=== PATIENT | male | born 1965 | race American Indian/Alaskan Native ===

== ENCOUNTER 2018-04-08 08:15 | Emergency (ER) | payer MEDICARE ==
[2018-04-08 08:18] VITALS: BMI 20.5
[2018-04-08 08:19] VITALS: RESP 17; TEMP 98.5
[2018-04-08] MEDS ORDERED: Sodium Chloride 0.9% 1,000 ML IV STA (09:36)
[2018-04-08 10:29] LABS: BASO % 0.2 % (0.0-2.0); EOS % 0.1 % (0.0-4.0); HEMOGLOBIN 12.9 g/dL (12.0-18.0); LYMPH # 0.7 K/uL (1.0-4.3); LYMPH % 10.1 % (20.0-40.0); MEAN CELL VOLUME 84.1 fl (80.0-94.0); MEAN CORPUSCULAR HEMOGLOBIN 28.3 pg (27.0-31.0); MEAN CORPUSCULAR HGB CONC 33.6 g/dL (33.0-37.0); MONO # 0.7 K/uL (0.0-0.8); NEUT # 5.7 K/uL (1.8-7.0); NEUT % 79.6 % (50.0-75.0); NRBC % 0.1 % (0.0-0.0); RBC 4.56 Mil/uL (4.40-5.90); RED CELL DISTRIBUTION WIDTH 13.5 % (11.5-14.5); WHITE BLOOD COUNT 7.2 K/uL (4.8-10.8)
[2018-04-08 10:35] LABS: INR 1.2; PROTHROMBIN TIME 13.4 Seconds (9.8-13.1)
[2018-04-08 10:38] LABS: PARTIAL THROMBOPLASTIN TIME 32.6 Seconds (25.6-37.1)
[2018-04-08 10:47] LABS: ALB/GLOB RATIO 1.1 (1.0-2.1); ALBUMIN 3.9 g/dL (3.5-5.0); ALT/SGPT 22 U/L (21-72); AST/SGOT 22 U/L (17-59); BLOOD UREA NITROGEN 16 mg/dl (9-20); CALCIUM 9.1 mg/dL (8.4-10.2); GFR NON-AFRICAN AMERICAN > 60
--- NOTE | 2018-04-08 10:56 | CT ---
Date of service: 04/08/2018 PROCEDURE: CT HEAD WITHOUT CONTRAST. HISTORY: headache COMPARISON: CT head dated 06/06/2014 TECHNIQUE: Axial computed tomography images were obtained through the head/brain without intravenous contrast. Radiation dose: Total exam DLP = 728.7 mGy-cm. This CT exam was performed using one or more of the following dose reduction techniques: Automated exposure control, adjustment of the mA and/or kV according to patient size, and/or use of iterative reconstruction technique. FINDINGS: HEMORRHAGE: No intracranial hemorrhage. BRAIN: No mass effect or edema. No atrophy or chronic microvascular ischemic changes. VENTRICLES: Unremarkable. No hydrocephalus. CALVARIUM: Unremarkable. PARANASAL SINUSES: Unremarkable as visualized. No significant inflammatory changes. MASTOID AIR CELLS: Unremarkable as visualized. No inflammatory changes. OTHER FINDINGS: None. IMPRESSION: No acute intracranial pathology.
--- NOTE | 2018-04-08 11:07 | ED PDOC ---
HPI: Headache Time Seen by Provider: 04/08/18 09:09 Chief Complaint (Nursing): Headache Chief Complaint (Provider): Headache History Per: Patient History/Exam Limitations: no limitations Onset/Duration Of Symptoms: Days (x1) Current Symptoms Are (Timing): Still Present Additional Complaint(s): 52 year old male, with a past medical history of migraines, presenting for evaluation of generalized headache x1 day. Patient states this morning he woke up with headache. Patient states headache is consistent with his usual migraines, was slow in onset, and not worst in his life. Patient is also complaining of chills, stiff neck, photophobia, and some hand pain which he s tates is also typical of his migraines. Patient reports he usually takes Fioricet for his migraines, but has none at home. Patient states he took Tylenol for his pain with no relief. Patient otherwise denies any fevers, numbness, tingling, chest pain, shortness of breath, nausea, vomiting, abdominal pain, dizziness, syncope, urinary complaints, or bladder or bowel incontinence. Patient also states he has an oral "abscess" which he noticed yesterday. Patient reports he is otherwise able to swallow and denies any throat pain. PMD: None Past Medical History Reviewed: Historical Data, Nursing Documentation, Vital Signs Vital Signs: Last Vital Signs Temp 98.5 F 04/08/18 08:18 Pulse 76 04/08/18 08:18 Resp 17 04/08/18 08:18 BP 121/88 04/08/18 08:18 Pulse Ox 100 04/08/18 08:18 - Medical History PMH: HTN, Migraine - Family History Family History: States: Unknown Family Hx - Immunization History Hx Tetanus Toxoid Vaccination: No Hx Influenza Vaccination: No Hx Pneumococcal Vaccination: Yes - Home Medications Home Medications: Ambulatory Orders Medication Instructions Recorded Aspirin [Ecotrin] 81 mg PO DAILY #30 tabec 02/27/18 Cyanocobalamin (Vitamin B-12) 1,000 mcg PO DAILY #60 capsule 02/27/18 [Vitamin B-12] Metoprolol Tartrate [Lopressor] 25 mg PO BID #60 tab 02/27/18 Acetaminophen/Butalbital/Caf 1 tab PO PRN PRN 03/16/18 [Fioricet] Acetaminophen/Butalbital/Caf 1 tab PO TID PRN #20 tab 03/16/18 [Fioricet] Clindamycin [Cleocin] 300 mg PO QID 7 Days cap 04/08/18 Ibuprofen [Motrin] 600 mg PO TID 7 Days tab 04/08/18 - Allergies Allergies/Adverse Reactions: Allergies Allergy/AdvReac Type Severity Reaction Status Date / Time No Known Allergies Allergy Verified 04/08/18 08:34 Review of Systems ROS Statement: Except As Marked, All Systems Reviewed And Found Negative Constitutional: Negative for: Fever, Chills Eyes: Positive for: Other (photophobia) Cardiovascular: Negative for: Chest Pain, Light Headedness Respiratory: Negative for: Shortness of Breath Gastrointestinal: Negative for: Nausea, Vomiting, Abdominal Pain, Diarrhea Neurological: Positive for: Headache Physical Exam - Reviewed Nursing Documentation Reviewed: Yes Vital Signs Reviewed: Yes - Physical Exam Appears: Positive for: Well, Non-toxic, No Acute Distress Head Exam: Positive for: ATRAUMATIC, NORMAL INSPECTION, NORMOCEPHALIC Skin: Positive for: Normal Color, Warm, Dry. Negative for: Rash Eye Exam: Positive for: EOMI, Normal appearance, PERRL ENT: Positive for: Other (left lower molar 2nd with tenderness to touch, patient with poor hygiene diffusely, questionable dental carries noted, (-) gross abscess or erythema noted) Neck: Positive for: Normal, Painless ROM, Supple Cardiovascular/Chest: Positive for: Regular Rate, Rhythm. Negative for: Murmur Respiratory: Positive for: Normal Breath Sounds. Negative for: Respiratory Distress Gastrointestinal/Abdominal: Positive for: Normal Exam, Soft. Negative for: Tenderness Back: Positive for: Normal Inspection. Negative for: L CVA Tenderness, R CVA Tenderness, Vertebral Tenderness Extremity: Positive for: Normal ROM. Negative for: Tenderness, Deformity Neurologic/Psych: Positive for: Alert, manager strategy II-XII, Oriented. Negative for: Motor/Sensory Deficits, Aphasia, Facial Droop - Laboratory Results Result Diagrams: 04/08/18 10:18 04/08/18 10:18 Interpretation Of Abn Labs: no acute - ECG ECG: Positive for: Interpreted By Me, Viewed By Me ECG Rhythm: Positive for: Normal QRS, Normal ST Segment, Sinus Rhythm Interpretation Of Abn EKG: PACs O2 Sat by Pulse Oximetry: 100 (RA) Pulse Ox Interpretation: Normal Medical Decision Making Medical Decision Makin Plan: -CT Head w/o contrast -CMP -CBC -PTT/PT -NS 1L IVB -Reglan 10mg IV -Reevaluation 1120: Labs and imaging reviewed. Head CT shows no acute pathology. Labs show no acute abnormalities. Scribe Attestation: Documented by Maikel Lobato, acting as a scribe for Joe Grant MD. Provider Scribe Attestation: All medical record entries made by the Scribe were at my direction and personally dictated by me. I have reviewed the chart and agree that the record accurately reflects my personal performance of the history, physical exam, me dical decision making, and the department course for this patient. I have also personally directed, reviewed, and agree with the discharge instructions and disposition. 1245: Stable. AAOx3. Pain free. Tolerated PO. Fu with pcp. Freddy pedersen and jyoti sign. Ran out of Ctrax and that worked for his migraine. Disposition - Clinical Impression Clinical Impression: Headache, Dental caries - Patient ED Disposition Is Patient to be Admitted: No Counseled Patient/Family Regarding: Studies Performed, Diagnosis, Need For Followup, Rx Given - Disposition Referrals: [facility] [Outside] - 04/09/18 Disposition: Routine/Home Disposition Time: 12:56 Condition: STABLE Additional Instructions: Return if not better in 3 days. Prescriptions: Clindamycin [Cleocin] 300 mg PO QID 7 Days cap Ibuprofen [Motrin] 600 mg PO TID 7 Days tab Instructions: Dental Pain (DC), Headache, Adult (DC)
[2018-04-08] MEDS ORDERED: Apap-Butalbital-Caffeine 325-50-40mg Tab PO STA (11:30)
[2018-04-08] MEDS ORDERED: Apap-Butalbital-Caffeine 325-50-40mg Tab ONE (12:15)
[2018-04-08 13:30] VITALS: BP 119/66; PULSE 69; O2SAT 99
== END 2018-04-08 13:33 | disposition home or self-care (01) ==
LOC: H.ER 08:15
DX: R51 Headache (principal); K02.9 Dental caries, unspecified
CPT/HCPCS: 70450; 80053; 85025; 85610; 85730; 96361; 96374; 96375; 99285; J1885; J2765; J7030

== ENCOUNTER 2018-04-08 22:07 | Emergency (ER) | payer MEDICARE ==
[2018-04-08 22:08] VITALS: BMI 20.5
[2018-04-08 22:12] VITALS: BP 148/90; PULSE 66; RESP 16; TEMP 98.3; O2SAT 95
[2018-04-08] MEDS ORDERED: Oxycodone/Acetaminophen 5/325 mg Tab PO STA (22:32)
--- NOTE | 2018-04-08 22:37 | ED PDOC ---
HPI: Dental Pain/Injury Time Seen by Provider: 04/08/18 22:19 Chief Complaint (Nursing): Dental Pain History Per: Patient Additional Complaint(s): Pt. states yesterday he developed a painful swelling to the L lower jaw and radiates to his head. States that he was seen earlier today for the same and had blood work done. States he was prescribed Clindamycin and Motrin. States he went directly home after being dc'd from the ED as he wanted to rest. He woke up and pain became worse. Denies trauma, fever, head injury, sore throat. Of note, pt. states he did not take any medications [employer]. Past Medical History Reviewed: Historical Data, Nursing Documentation, Vital Signs Vital Signs: Last Vital Signs Temp 98.3 F 04/08/18 22:10 Pulse 66 04/08/18 22:10 Resp 16 04/08/18 22:10 BP 148/90 04/08/18 22:10 Pulse Ox 95 04/08/18 22:10 - Medical History PMH: HTN, Migraine - Family History Family History: States: No Known Family Hx - Immunization History Hx Tetanus Toxoid Vaccination: No Hx Influenza Vaccination: No Hx Pneumococcal Vaccination: Yes - Home Medications Home Medications: Ambulatory Orders Medication Instructions Recorded Aspirin [Ecotrin] 81 mg PO DAILY #30 tabec 02/27/18 Cyanocobalamin (Vitamin B-12) 1,000 mcg PO DAILY #60 capsule 02/27/18 [Vitamin B-12] Metoprolol Tartrate [Lopressor] 25 mg PO BID #60 tab 02/27/18 Acetaminophen/Butalbital/Caf 1 tab PO PRN PRN 03/16/18 [Fioricet] Acetaminophen/Butalbital/Caf 1 tab PO TID PRN #20 tab 03/16/18 [Fioricet] Clindamycin [Cleocin] 300 mg PO QID 7 Days cap 04/08/18 Ibuprofen [Motrin] 600 mg PO TID 7 Days tab 04/08/18 - Allergies Allergies/Adverse Reactions: Allergies Allergy/AdvReac Type Severity Reaction Status Date / Time No Known Allergies Allergy Verified 04/08/18 08:34 Review of Systems ROS Statement: Except As Marked, All Systems Reviewed And Found Negative Neurological: Positive for: Headache Physical Exam - Physical Exam Appears: Positive for: Well, Non-toxic, In Acute Distress (moderate painful distress) Skin: Positive for: Normal Color, Warm. Negative for: Rash Eye Exam: Positive for: Normal appearance ENT: Positive for: Other (L mandibular premolar area with mild gingival swelling; able to swallow saliva, no trismus). Negative for: Pharyngeal Erythema, Tonsillar Exudate, Tonsillar Swelling Neck: Positive for: Normal, Painless ROM Neurologic/Psych: Positive for: Alert, Oriented (x3), Other. Negative for: Aphasia, Facial Droop - ECG O2 Sat by Pulse Oximetry: 95 - Progress ED Course And Treament: Toradol 30mg IM, percocet 1 tab PO, clindamycin 300mg PO ordered. Pt. informed that he must f/u with a dental clinic for I&D of abscess. Disposition - Clinical Impression Clinical Impression: Dental abscess - Patient ED Disposition Is Patient to be Admitted: No - Disposition Referrals: [facility] [Outside] [facility] [Outside] Disposition: Routine/Home Disposition Time: 22:42 Condition: IMPROVED Additional Instructions: Dental Clinic [address] [place] [id number] FOLLOW UP WITH A DENTIST FOR FURTHER EVALUATION FILL YOUR PRESCRIPTIONS TOMORROW BILL NEW, thank you for letting us take care of you today. Your provider was Jeet Coronel MD and you were treated for WEAKNESS, POSS ABSCESS. The emergency medical care you received today was directed at your acute symptoms. If you were prescribed any medication, please fill it and take as directed. It may take several days for your symptoms to resolve. Return to the Emergency Department if your symptoms worsen, do not improve, or if you have any other problems. Please contact your doctor or call one of the physicians/clinics you have been referred to that are listed on the Patient Visit Information form that is included in your discharge packet. Bring any paperwork you were given at discharge with you along with any medications you are taking to your follow up visit. Our treatment cannot replace ongoing medical care by a primary care provider outside of the emergency department. Thank you for allowing the [facility] team to be part of your care today. If you had an X-Ray or CT scan: A Radiologist will review the ED reading if any change in treatment is needed we will contact you. If you had a blood, urine, or wound culture: It will take several days for the results, if any change in treatment is needed we will contact you. If you had an STI test: It will take 48 hours for the results. Please call after 1 week if you have not heard back. Instructions: Tooth Abscess (DC) Print Language: AUSTRALIAN
== END 2018-04-08 23:27 | disposition home or self-care (01) ==
LOC: H.ER 22:07
DX: K04.7 Periapical abscess without sinus (principal)
CPT/HCPCS: 96372; 99282; J1885

== ENCOUNTER 2018-04-08 23:30 | Emergency (ER) | payer MEDICARE ==
[2018-04-08 23:30] VITALS: BMI 20.5
[2018-04-09] MEDS ORDERED: Sodium Chloride 0.9% 1,000 ML IV STA (00:38)
--- NOTE | 2018-04-09 00:41 | CARD ---
APPROVED REPORT Date of service: 04/08/2018 EKG Measurement Heart [id number] <Conclusion> Sinus rhythm with premature atrial complexes Borderline ECG
--- NOTE | 2018-04-09 01:11 | ED PDOC ---
HPI: General Adult Time Seen by Provider: 04/09/18 00:15 Chief Complaint (Nursing): Weakness/Neurological Deficit Chief Complaint (Provider): Dizzy History Per: Patient History/Exam Limitations: no limitations Recently: Seen In ED Additional History Per: Patient Additional Complaint(s): 52yo male, with past medical history of hypertension, migraines, presents to ER complaining of feeling dizzy. Patient was evaluated in this ED 2x today and upon discharge, patient was in the waiting room where he reported feeling dizzy, lightheaded and felt as if "passing out." He also reports associated nausea. Patient denies any chest pain, headache, and offers no additional medical complaints. Past Medical History Reviewed: Historical Data, Nursing Documentation, Vital Signs Vital Signs: Last Vital Signs Temp 98.0 F 04/08/18 23:53 Pulse 70 04/08/18 23:53 Resp 16 04/08/18 23:53 BP 138/60 04/08/18 23:53 Pulse Ox 95 04/08/18 23:53 - Medical History PMH: HTN, Migraine - Surgical History Surgical History: No Surg Hx - Family History Family History: States: No Known Family Hx - Immunization History Hx Tetanus Toxoid Vaccination: No Hx Influenza Vaccination: No Hx Pneumococcal Vaccination: Yes - Home Medications Home Medications: Ambulatory Orders Medication Instructions Recorded Aspirin [Ecotrin] 81 mg PO DAILY #30 tabec 02/27/18 Cyanocobalamin (Vitamin B-12) 1,000 mcg PO DAILY #60 capsule 02/27/18 [Vitamin B-12] Metoprolol Tartrate [Lopressor] 25 mg PO BID #60 tab 02/27/18 Acetaminophen/Butalbital/Caf 1 tab PO PRN PRN 03/16/18 [Fioricet] Acetaminophen/Butalbital/Caf 1 tab PO TID PRN #20 tab 03/16/18 [Fioricet] Clindamycin [Cleocin] 300 mg PO QID 7 Days cap 04/08/18 Ibuprofen [Motrin] 600 mg PO TID 7 Days tab 04/08/18 - Allergies Allergies/Adverse Reactions: Allergies Allergy/AdvReac Type Severity Reaction Status Date / Time No Known Allergies Allergy Verified 04/08/18 08:34 Review of Systems ROS Statement: Except As Marked, All Systems Reviewed And Found Negative Cardiovascular: Positive for: Light Headedness. Negative for: Chest Pain Neurological: Positive for: Dizziness. Negative for: Headache Physical Exam - Reviewed Nursing Documentation Reviewed: Yes Vital Signs Reviewed: Yes - Physical Exam Appears: Positive for: Non-toxic (cacechtic and chronically ill appearing), Unc omfortable Head Exam: Positive for: ATRAUMATIC, NORMAL INSPECTION, NORMOCEPHALIC Skin: Positive for: Normal Color Eye Exam: Positive for: Normal appearance Neck: Positive for: Normal, Supple Cardiovascular/Chest: Positive for: Regular Rate, Rhythm, Chest Non Tender Respiratory: Positive for: Normal Breath Sounds Gastrointestinal/Abdominal: Positive for: Normal Exam, Soft Back: Positive for: Normal Inspection Extremity: Positive for: Normal ROM (moving all extremities) Neurologic/Psych: Positive for: Alert, Oriented, Other (slow to respond). Ne gative for: Motor/Sensory Deficits - Laboratory Results Result Diagrams: 04/09/18 01:21 04/09/18 01:21 - ECG O2 Sat by Pulse Oximetry: 95 (RA) Pulse Ox Interpretation: Normal Medical Decision Making Medical Decision Making: Assessment: 52yo male with history of hypertension, migraines, comes with weakness and dizziness Unclear if symptoms are chronic or acute on chronic Possibly related to dehydration, vertigo or central neurological etiology Plan: * Labs * EKG * CT Head w/o contrast * Chest x-ray * Urinalysis * Rapid HIV * IV Fluids * Reglan 10mg IVP 01:40 CT Head report reviewed. CT Head Impression: Normal unenhanced CT scan of the brain. 03:12 HIV screen negative 05:00 Labs reviewed, show no clinically significant abnormalities. On reassessment, patient reports feeling much better and states symptoms have improved. Patient informed to follow up with PMD/[place] clinic. Stable for discharge home. Scribe Attestation: Documented by Ann Fraser, acting as a scribe for Davian Carrillo MD. Provider Scribe Attestation: All medical record entries made by the Scribe were at my direction and p ersonally dictated by me. I have reviewed the chart and agree that the record accurately reflects my personal performance of the history, physical exam, medical decision making, and the department course for this patient. I have also personally directed, reviewed, and agree with the discharge instructions and disposition. Disposition - Clinical Impression Clinical Impression: Dizziness - Patient ED Disposition Is Patient to be Admitted: No - Disposition Referrals: [facility] [Outside] Disposition: Routine/Home Disposition Time: 05:06 Condition: IMPROVED Instructions: Generalized Weakness, Dizziness, Nonvertigo, (DC), Dehydration, Adult (DC) Forms: Gigya Jeevan (Slovenian)
[2018-04-09 01:24] LABS: BASO % 0.1 % (0.0-2.0); EOS % 0.2 % (0.0-4.0); HEMOGLOBIN 11.6 g/dL (12.0-18.0); LYMPH # 0.5 K/uL (1.0-4.3); LYMPH % 5.6 % (20.0-40.0); MEAN CELL VOLUME 85.9 fl (80.0-94.0); MEAN CORPUSCULAR HEMOGLOBIN 28.4 pg (27.0-31.0); MEAN PLATELET VOLUME 7.8 fl (7.2-11.7); MONO # 0.7 K/uL (0.0-0.8); MONO % 7.6 % (0.0-10.0); NEUT % 86.5 % (50.0-75.0); PLATELET COUNT 143 K/uL (130-400); RED CELL DISTRIBUTION WIDTH 13.8 % (11.5-14.5); WHITE BLOOD COUNT 9.2 K/uL (4.8-10.8)
[2018-04-09 01:26] LABS: INR 1.2; PROTHROMBIN TIME 13.7 Seconds (9.8-13.1)
[2018-04-09 01:29] LABS: PARTIAL THROMBOPLASTIN TIME 30.1 Seconds (25.6-37.1)
[2018-04-09 01:33] LABS: BLOOD UREA NITROGEN 15 mg/dl (9-20); CALCIUM 8.7 mg/dL (8.4-10.2); GFR NON-AFRICAN AMERICAN > 60
[2018-04-09 03:45] LABS: BANDS 2 % (0-2); LYMPHOCYTE 3 % (20-50); MONOCYTE 5 % (0-10); NEUTROPHIL 90 % (42-75); TOTAL CELLS COUNTED 100
[2018-04-09 03:46] LABS: PLATELET ESTIMATE NORMAL (NORMAL)
[2018-04-09 03:48] LABS: ANISOCYTOSIS SLIGHT
[2018-04-09 03:49] LABS: GIANT PLATELETS PRESENT; HYPOCHROMIC SLIGHT
[2018-04-09 04:41] LABS: URINE BILIRUBIN NEGATIVE (NEGATIVE); URINE BLOOD NEGATIVE (NEGATIVE); URINE CLARITY CLEAR (Clear); URINE COLOR YELLOW (YELLOW); URINE GLUCOSE (UA) NEG (Normal); URINE LEUKOCYTE ESTERASE NEG Leu/uL (Negative); URINE PROTEIN NEGATIVE (NEGATIVE); URINE UROBILINOGEN 0.2-1.0 mg/dL (0.2-1.0)
[2018-04-09 04:53] LABS: OPIATES, UR NEGATIVE (NEGATIVE)
[2018-04-09 04:55] LABS: BARBITURATES, UR POSITIVE (NEGATIVE); BENZODIAZEPINES, UR NEGATIVE (NEGATIVE); PHENCYCLIDINE, UR NEGATIVE (NEGATIVE)
[2018-04-09 05:53] VITALS: BP 149/96; PULSE 68; RESP 20; TEMP 98.8; O2SAT 99
--- NOTE | 2018-04-09 09:17 | CT ---
Date of service: 04/09/2018 PROCEDURE: CT HEAD WITHOUT CONTRAST. HISTORY: dizziness, weakness, ROMANO COMPARISON: 04/08/2018 TECHNIQUE: Axial computed tomography images were obtained through the head/brain without intravenous contrast. Radiation dose: Total exam DLP = 771.84 mGy-cm. This CT exam was performed using one or more of the following dose reduction techniques: Automated exposure control, adjustment of the mA and/or kV according to patient size, and/or use of iterative reconstruction technique. FINDINGS: HEMORRHAGE: No intracranial hemorrhage. BRAIN: No mass effect or edema. No atrophy or chronic microvascular ischemic changes. VENTRICLES: Unremarkable. No hydrocephalus. CALVARIUM: Unremarkable. PARANASAL SINUSES: Unremarkable as visualized. No significant inflammatory changes. MASTOID AIR CELLS: Unremarkable as visualized. No inflammatory changes. OTHER FINDINGS: None. IMPRESSION: Normal CT of the Head. No intracranial mass, hemorrhage or evidence of acute infarct. No interval change. The preliminary findings for this examination were reported by [facility] at 1:35 a.m. on 04/09/2018. There is concurrence of this report with the preliminary findings.
--- NOTE | 2018-04-09 12:42 | RAD ---
Date of service: 04/09/2018 PROCEDURE: CHEST RADIOGRAPH, 1 VIEW HISTORY: dizzines COMPARISON: Chest radiograph dated 10/11/2015. FINDINGS: LUNGS: Clear. PLEURA: No pneumothorax or pleural fluid seen. CARDIOVASCULAR: Normal. OSSEOUS STRUCTURES: Unchanged. VISUALIZED UPPER ABDOMEN: Normal. OTHER FINDINGS: None. IMPRESSION: No active disease.
== END 2018-04-09 06:19 | disposition home or self-care (01) ==
LOC: H.ER 23:30
DX: R42 Dizziness and giddiness (principal); F13.20 Sedative, hypnotic or anxiolytic dependence, uncomplicated; I10 Essential (primary) hypertension
CPT/HCPCS: 70450; 71045; 80048; 81003; 84484; 85025; 85610; 85730; 87390; 93005; 96360; 99285; G0480; J7030

== ENCOUNTER 2018-06-13 21:28 | Emergency (ER) | payer MEDICARE ==
[2018-06-13 21:29] VITALS: BMI 20.5
[2018-06-13 21:34] VITALS: TEMP 97.5; O2SAT 99
--- NOTE | 2018-06-14 02:27 | ED PDOC ---
HPI: General Adult Time Seen by Provider: 06/13/18 21:40 Chief Complaint (Nursing): Medical Clearance Chief Complaint (Provider): tremor, chest congestion History Per: Patient History/Exam Limitations: no limitations Onset/Duration Of Symptoms: Days Have you had recent travel within the past 21 days to any of the following countries: [place], [place], [place] or [place]?: No Current Symptoms Are (Timing): Still Present Additional Complaint(s): 52 yo male with history of schizophrenia and HTN presents for evaluation of tremor which he states has been going on for 1 month. Pt was placed on cogentin and haldol 2 months ago. Pt states he is unable to sleep. Pt also states he has chest congestion without pain and thinks he is getting a cold. No SOB. Past Medical History Reviewed: Historical Data, Nursing Documentation, Vital Signs Vital Signs: Last Vital Signs Temp 97.5 F L 06/13/18 21:32 Pulse 75 06/13/18 21:32 Resp 16 06/13/18 21:32 BP 144/75 06/13/18 21:32 Pulse Ox 99 06/13/18 21:32 - Medical History PMH: HTN, Migraine - Surgical History Surgical History: No Surg Hx - Family History Family History: States: No Known Family Hx - Immunization History Hx Tetanus Toxoid Vaccination: No Hx Influenza Vaccination: No Hx Pneumococcal Vaccination: Yes - Home Medications Home Medications: Ambulatory Orders Medication Instructions Recorded Ibuprofen [Motrin] 600 mg PO TID 7 Days tab 04/08/18 B,C/Folic/Zinc/Copper Ox/Vit E 1 each PO DAILY 05/03/18 [Stress B-Complex Tablet] Clindamycin [Cleocin] 300 mg PO QID 05/03/18 amLODIPine [Norvasc] 2.5 mg PO DAILY 05/03/18 - Allergies Allergies/Adverse Reactions: Allergies Allergy/AdvReac Type Severity Reaction Status Date / Time No Known Allergies Allergy Verified 06/13/18 21:31 Review of Systems ROS Statement: Except As Marked, All Systems Reviewed And Found Negative Constitutional: Negative for: Fever, Chills Cardiovascular: Negative for: Chest Pain, Palpitations, Edema, Light Headedness Respiratory: Positive for: Other (Congestion). Negative for: Cough, Shortness of Breath Gastrointestinal: Negative for: Nausea, Vomiting, Abdominal Pain, Diarrhea Physical Exam - Reviewed Nursing Documentation Reviewed: Yes Vital Signs Reviewed: Yes - Physical Exam Appears: Positive for: Well, Non-toxic, No Acute Distress Head Exam: Positive for: ATRAUMATIC, NORMAL INSPECTION, NORMOCEPHALIC Skin: Positive for: Normal Color, Warm, DRY Eye Exam: Positive for: Normal appearance ENT: Positive for: Normal ENT Inspection Neck: Positive for: Normal, Painless ROM Cardiovascular/Chest: Positive for: Regular Rate, Rhythm Respiratory: Positive for: CNT, Normal Breath Sounds Gastrointestinal/Abdominal: Positive for: Normal Exam, Soft Back: Positive for: Normal Inspection Extremity: Positive for: Normal ROM Neurologic/Psych: Positive for: Alert, Oriented - ECG O2 Sat by Pulse Oximetry: 99 Medical Decision Making Medical Decision Making: CXR - Normal ' Discussed taking benadryl with medications and f/u with psychiatrist for change in medication. Disposition - Clinical Impression Clinical Impression: Common cold, Medication side effect, Tardive dyskinesia - Patient ED Disposition Is Patient to be Admitted: No - Disposition Referrals: [facility] [Outside] Disposition: Routine/Home Disposition Time: 02:31 Condition: STABLE Additional Instructions: Please take benadryl with medications. Follow-up with psychiatrist. Instructions: General (DC), Tardive Dyskinesia
[2018-06-14 05:30] VITALS: BP 127/81; PULSE 78; RESP 17
--- NOTE | 2018-06-14 11:10 | RAD ---
Date of service: 06/13/2018 HISTORY: congestion, cough COMPARISON: No prior. TECHNIQUE: Chest PA and lateral FINDINGS: LUNGS: No active pulmonary disease. PLEURA: No significant pleural effusion identified. No pneumothorax apparent. CARDIOVASCULAR: No aortic atherosclerotic calcification present. Normal cardiac size. No pulmonary vascular congestion. OSSEOUS STRUCTURES: No significant abnormalities. VISUALIZED UPPER ABDOMEN: Normal. OTHER FINDINGS: None. IMPRESSION: No active disease.
== END 2018-06-14 05:30 | disposition home or self-care (01) ==
LOC: H.ER 21:28
DX: J00 Acute nasopharyngitis [common cold] (principal); G24.01 Drug induced subacute dyskinesia; I10 Essential (primary) hypertension; Z86.59 Personal history of other mental and behavioral disorders

== ENCOUNTER 2018-07-03 16:51 | Emergency (ER) | payer MEDICARE ==
[2018-07-03 16:52] VITALS: BMI 20.5
[2018-07-03] MEDS ORDERED: DiphenhydrAMINE 50 mg/ml Inj IVP STA (17:51)
[2018-07-03 18:13] LABS: BASO % 0.5 % (0.0-2.0); EOS # 0.2 K/uL (0.0-0.7); EOS % 5.1 % (0.0-4.0); HEMOGLOBIN 11.3 g/dL (12.0-18.0); LYMPH # 0.8 K/uL (1.0-4.3); MEAN CELL VOLUME 86.5 fl (80.0-94.0); MEAN CORPUSCULAR HEMOGLOBIN 28.1 pg (27.0-31.0); MEAN CORPUSCULAR HGB CONC 32.5 g/dL (33.0-37.0); MEAN PLATELET VOLUME 7.4 fl (7.2-11.7); MONO # 0.3 K/uL (0.0-0.8); MONO % 8.8 % (0.0-10.0); NEUT # 2.5 K/uL (1.8-7.0); NEUT % 65.6 % (50.0-75.0); NRBC % 0.1 % (0.0-0.0); RBC 4.03 Mil/uL (4.40-5.90); RED CELL DISTRIBUTION WIDTH 13.3 % (11.5-14.5); WHITE BLOOD COUNT 3.8 K/uL (4.8-10.8)
[2018-07-03 18:34] LABS: ALB/GLOB RATIO 1.2 (1.0-2.1); ALBUMIN 3.8 g/dL (3.5-5.0); ALT/SGPT 19 U/L (21-72); AST/SGOT 24 U/L (17-59); BLOOD UREA NITROGEN 24 mg/dl (9-20); CALCIUM 9.2 mg/dL (8.4-10.2); GFR NON-AFRICAN AMERICAN > 60
[2018-07-03] MEDS ORDERED: Sodium Chloride 0.9% 1,000 ML IV STA (18:40)
--- NOTE | 2018-07-03 18:56 | ED PDOC ---
Syncope/Near Syncope/Dizziness Time Seen by Provider: 07/03/18 17:04 Chief Complaint (Nursing): Shortness Of Breath Chief Complaint (Provider): Near Syncope History Per: Patient History/Exam Limitations: no limitations Onset/Duration Of Symptoms: Hrs Current Symptoms Are (Timing): Better Additional Complaint(s): 52 y/o male with a PMHx of schizophrenia and HTN (however not any meds) presents to the ED for evaluation of near syncope, onset 3 hours ago. Patient reports at around 4 o'clock while walking in his house, he began feeling lightheaded like he was going to pass out as well as short of breath as if he needs oxygen. Since then, patient reports of feeling a little better. Patient states he believes it could either be from a recent change in medication of Haldol and Cogentin or being that he had just come into a very warm house. Patient additionally compla ins non-productive cough associated with nasal congestion lasting for about three days. Otherwise, patient denies fever, chills, chest pain, focal weakness, blurry vision, hallucinations, homicidal ideation, suicidal ideation, drug or alcohol use. PMD: no provider Past Medical History Reviewed: Historical Data, Nursing Documentation, Vital Signs Vital Signs: Last Vital Signs Temp 98.3 F 07/03/18 17:09 Pulse 102 H 07/03/18 17:09 Resp 20 07/03/18 17:09 BP 127/93 H 07/03/18 17:09 Pulse Ox 99 07/03/18 17:09 - Medical History PMH: HTN (However, not on any medications), Migraine, Schizophrenia - Surgical History Other surgeries: on finger - Family History Family History: States: Unknown Family Hx - Social History Current smoker - smoking cessation education provided: No Alcohol: None Drugs: Denies - Immunization History Hx Tetanus Toxoid Vaccination: No Hx Influenza Vaccination: No Hx Pneumococcal Vaccination: Yes - Home Medications Home Medications: Ambulatory Orders Medication Instructions Recorded Ibuprofen [Motrin] 600 mg PO TID 7 Days tab 04/08/18 B,C/Folic/Zinc/Copper Ox/Vit E 1 each PO DAILY 05/03/18 [Stress B-Complex Tablet] Clindamycin [Cleocin] 300 mg PO QID 05/03/18 amLODIPine [Norvasc] 2.5 mg PO DAILY 05/03/18 - Allergies Allergies/Adverse Reactions: Allergies Allergy/AdvReac Type Severity Reaction Status Date / Time No Known Allergies Allergy Verified 07/03/18 17:02 Review of Systems ROS Statement: Except As Marked, All Systems Reviewed And Found Negative (as per HPI) Constitutional: Negative for: Fever, Chills Eyes: Negative for: Vision Change Cardiovascular: Negative for: Chest Pain Respiratory: Positive for: Cough, Shortness of Breath Neurological: Positive for: Other (Lightheadedness). Negative for: Weakness Psych: Negative for: Suicidal ideation (or homicidal ideation), Other (hallucinations, drug or alcohol use) Physical Exam - Reviewed Nursing Documentation Reviewed: Yes Vital Signs Reviewed: Yes - Physical Exam Appears: Positive for: No Acute Distress (appears younger than given age. 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 Negative for: Murmur Respiratory: Positive for: Normal Breath Sounds. Negative for: Respiratory Distress Gastrointestinal/Abdominal: Positive for: Soft. Negative for: Tenderness Back: Positive for: Normal Inspection. Negative for: Muscle Spasm Extremity: Positive for: Normal ROM. Negative for: Deformity Lymphatic: Negative for: Adenopathy Neurologic/Psych: Positive for: Alert (awake), Oriented (x3), Other (Appears to have mild cognitive deficits or developmental delay. ). Negative for: Motor/Sensory Deficits - Laboratory Results Result Diagrams: 07/03/18 17:59 07/03/18 17:59 - ECG O2 Sat by Pulse Oximetry: 99 (RA) Pulse Ox Interpretation: Normal Medical Decision Making Medical Decision Making: Time: 1750 Impression: Near syncope and cough Differentials include but not limited to dehydration, electrolyte abnormality, adverse affect of medication change, heat exhaustion, URI, Flu, Bronchitis and pneumonia Plan: -- EKG -- CMP -- Magnesium -- Troponin I -- CBC with Differentials -- D Dimer -- CXR Two Views -- Glucose, POC -- Benadryl 25 mg IVP -- Batch Attendant -- IV Insertion Time: 1840 -- Labs demonstrate an elevated D Dimer at 2,401 -- CT Angio Chest PE Protocol -- Sodium Chloride IV 1000 mls/hr Time: 2014 CTA RESULTS FINDINGS: PULMONARY ARTERIES No evidence of central or segmental pulmonary embolism is seen. AORTA There is no evidence for aneurysm or dissection of the thoracic aorta. LUNGS The lungs appear clear. PLEURAL SPACES No pneumothorax evident. No pleural effusions. HEART Heart size is within normal limits. No significant pericardial effusion. LYMPH NODES No lymphadenopathy is evident. BONES No focal osseous abnormality or acute fracture. UPPER ABDOMEN Images of the upper abdomen are unremarkable. IMPRESSION: Unremarkable pulmonary embolism protocol CTA of the chest. Electronically signed on Jul 03, 2018 8:15:20 PM EST by: Johnnie Xiong M.D., Certified by [facility], Diagnostic Radiology Time: 2228 -- Discussed with patient findings. Patient given albuterol. Patient reports albuterol "did not feel like it do anything". However, patient reports he is not as short of breath. Patient is stable for discharge. Scribe Attestation: Documented by Patrica Roy, acting as a scribe for Ale Beauchamp MD. Provider Scribe Attestation: All medical record entries made by the Scribe were at my direction and personally dictated by me. I have reviewed the chart and agree that the record accurately reflects my personal performance of the history, physical exam, medical decision making, and the department course for this patient. I have also personally directed, reviewed, and agree with the discharge instructions and disposition. Disposition - Clinical Impression Clinical Impression: Dyspnea - Patient ED Disposition Is Patient to be Admitted: No - Disposition Referrals: [facility] [Outside] - 07/06/18 Disposition: Routine/Home Disposition Time: 22:49 Condition: STABLE Additional Instructions: FOLLOW UP WITH CLINIC AND YOUR PSYCHIATRIST NEXT WEEK FOR FURTHER EVALUATION Instructions: Shortness of Breath (Dyspnea)
[2018-07-03] MEDS ORDERED: DiphenhydrAMINE 50 mg/ml Inj ONE (18:57)
--- NOTE | 2018-07-03 18:59 | RAD ---
Date of service: 07/03/2018 HISTORY: SOB. COMPARISON: Comparison chest 06/13/2018. TECHNIQUE: Chest PA and lateral FINDINGS: LUNGS: No active pulmonary disease. Questionable mild biapical pleural thickening. PLEURA: No significant pleural effusion identified. No pneumothorax apparent. CARDIOVASCULAR: No aortic atherosclerotic calcification present. Normal cardiac size. No pulmonary vascular congestion. OSSEOUS STRUCTURES: No significant abnormalities. VISUALIZED UPPER ABDOMEN: Normal. OTHER FINDINGS: None. IMPRESSION: No active disease.
[2018-07-03 19:26] VITALS: RESP 18
[2018-07-03] MEDS ORDERED: Iodixanol 320 MG/ML 100 ML BOTTLE IV ONE (19:29)
[2018-07-03] MEDS ORDERED: Sodium Chloride 0.9% 50 ML IV ONE (19:29)
[2018-07-03] MEDS ORDERED: Albuterol-Ipratrop 3 mg / 0.5 (3 ml) UD INH STA (21:12)
[2018-07-03 23:20] VITALS: BP 98/72; PULSE 72; TEMP 97.4
--- NOTE | 2018-07-04 17:49 | CT ---
Date of service: 07/03/2018 PROCEDURE: CT Chest with contrast (Pulmonary Angiogram) HISTORY: SOB. Elevated D dimer COMPARISON: I comparison chest dated 09/03/2017 at 1749 hr. TECHNIQUE: Axial computed tomography images were obtained of the chest in the pulmonary arterial phase of enhancement. Coronal and sagittal reformatted images were created and reviewed. Intravenous contrast dose: 90 cc Visipaque 320 Radiation dose: Total exam DLP = 370.27 mGy-cm. This CT exam was performed using one or more of the following dose reduction techniques: Automated exposure control, adjustment of the mA and/or kV according to patient size, and/or use of iterative reconstruction technique. FINDINGS: PULMONARY ARTERIES: The cyst visualized pulmonary trunk, right and left main, lobar, segmental and subsegmental branches of the pulmonary arteries are well opacified with no definitive filling defects seen to suggest acute central pulmonary embolus. Pulmonary trunk measures approximately 2.4 cm in transverse dimension.. AORTA: No acute findings. No evidence of dissection..No thoracic aortic aneurysm.. Ascending thoracic measures approximately 3.2 cm and descending thoracic aorta measures approximately 2.7 cm. No aortic atherosclerotic calcification or mural plaque present. LUNGS: Note made of some very minimal pleural based nodularity left posterior lower lung hernandez likely representing some post inflammatory sequela.. PLEURAL SPACES: Unremarkable. No effusion or pneumothorax. HEART: Heart size within range of normal. LYMPH NODES: No significant mediastinal or hilar lymphadenopathy. The trachea midline and patent with what could represent a small amount of mucous debris within the posterior margin of the trachea just above the level of the aortic arch.. BONES, CHEST WALL: Unremarkable. No fracture or destructive lesion OTHER FINDINGS: . Note is made of a very large amount of food debris within a distended stomach IMPRESSION: No evidence of acute central pulmonary embolus. Suspect some mucous debris within the posterior margin of the trachea just above the level of the aortic arch.. Repeat CT scan at interval could be performed to assess resolution.
[2018-07-04 20:50] VITALS: O2SAT 99
--- NOTE | 2018-07-04 23:54 | CARD ---
APPROVED REPORT Date of service: 07/03/2018 EKG Measurement Heart [id number] <Conclusion> Normal sinus rhythm Normal Electrocardiogram
== END 2018-07-03 23:30 | disposition home or self-care (01) ==
LOC: H.ER 16:51
DX: R06.00 Dyspnea, unspecified (principal); I10 Essential (primary) hypertension
CPT/HCPCS: 71046; 71275; 80053; 82948; 83735; 84100; 84484; 85025; 85378; 93005; 94640; 96360; 96374; 99285; J1200; J7030; Q9967

== ENCOUNTER 2018-07-06 16:53 | Emergency (ER) | payer MEDICARE ==
[2018-07-06 16:53] VITALS: BMI 20.5
[2018-07-06 17:04] VITALS: O2SAT 100
--- NOTE | 2018-07-06 17:25 | ED PDOC ---
HPI: CCC, URI, Sore Throat Time Seen by Provider: 07/06/18 17:13 Chief Complaint (Nursing): Shortness Of Breath History Per: Patient Onset/Duration Of Symptoms: Days (1) Current Symptoms Are (Timing): Still Present Associated Symptoms: Cough. denies: Fever, Chills, Sputum Severity: Mild Additional Complaint(s): Non productive cough assoc with SOB since this AM. Denies fever or chest pain. Past Medical History Vital Signs: Last Vital Signs Temp 98.1 F 07/06/18 17:02 Pulse 96 H 07/06/18 17:02 Resp 18 07/06/18 17:02 BP 114/80 07/06/18 17:02 Pulse Ox 100 07/06/18 17:02 - Medical History PMH: HTN (However, not on any medications), Migraine, Schizophrenia - Family History Family History: States: Unknown Family Hx - Immunization History Hx Tetanus Toxoid Vaccination: No Hx Influenza Vaccination: No Hx Pneumococcal Vaccination: Yes - Home Medications Home Medications: Ambulatory Orders Medication Instructions Recorded Ibuprofen [Motrin] 600 mg PO TID 7 Days tab 04/08/18 B,C/Folic/Zinc/Copper Ox/Vit E 1 each PO DAILY 05/03/18 [Stress B-Complex Tablet] Clindamycin [Cleocin] 300 mg PO QID 05/03/18 amLODIPine [Norvasc] 2.5 mg PO DAILY 05/03/18 Albuterol HFA [Ventolin HFA 90 2 puff IH Q4H #1 puff 07/06/18 mcg/actuation (8 g)] Azithromycin [Zithromax] 250 mg PO DAILY #6 tab 07/06/18 - Allergies Allergies/Adverse Reactions: Allergies Allergy/AdvReac Type Severity Reaction Status Date / Time No Known Allergies Allergy Verified 07/03/18 17:02 Review of Systems ROS Statement: Except As Marked, All Systems Reviewed And Found Negative Constitutional: Negative for: Fever, Chills Cardiovascular: Negative for: Chest Pain Respiratory: Positive for: Cough, Shortness of Breath Physical Exam - Reviewed Nursing Documentation Reviewed: Yes Vital Signs Reviewed: Yes - Physical Exam Appears: Positive for: Non-toxic, No Acute Distress Head Exam: Positive for: ATRAUMATIC, NORMAL INSPECTION, NORMOCEPHALIC Skin: Positive for: Normal Color, Warm, DRY Eye Exam: Positive for: EOMI, Normal appearance, PERRL ENT: Positive for: Normal ENT Inspection Neck: Positive for: Normal, Painless ROM Cardiovascular/Chest: Positive for: Regular Rate, Rhythm Respiratory: Positive for: Rhonchi (Right side). Negative for: Wheezing, Respiratory Distress Gastrointestinal/Abdominal: Positive for: Normal Exam, Soft Back: Positive for: Normal Inspection Extremity: Positive for: Normal ROM Neurologic/Psych: Positive for: Alert, Oriented - ECG O2 Sat by Pulse Oximetry: 100 Disposition - Clinical Impression Clinical Impression: Bronchitis - Patient ED Disposition Is Patient to be Admitted: No Counseled Patient/Family Regarding: Studies Performed, Diagnosis, Need For Followup, Rx Given - Disposition Referrals: [facility] [Outside] Disposition: Routine/Home Disposition Time: 18:20 Condition: FAIR Prescriptions: Albuterol HFA [Ventolin HFA 90 mcg/actuation (8 g)] 2 puff IH Q4H #1 puff Azithromycin [Zithromax] 250 mg PO DAILY #6 tab Instructions: Acute Bronchitis Forms: [employer] (Congolese)
--- NOTE | 2018-07-06 17:53 | RAD ---
Date of service: 07/06/2018 HISTORY: cough COMPARISON: 07/03/2018. TECHNIQUE: Chest PA and lateral FINDINGS: LUNGS: Hyperinflation, manifestations of COPD. No active pulmonary disease. PLEURA: No significant pleural effusion identified. No pneumothorax apparent. CARDIOVASCULAR: No aortic atherosclerotic calcification present. Normal cardiac size. No pulmonary vascular congestion. OSSEOUS STRUCTURES: No significant abnormalities. VISUALIZED UPPER ABDOMEN: Normal. OTHER FINDINGS: None. IMPRESSION: No active disease. No significant interval change compared to the prior examination(s).
[2018-07-06 19:12] VITALS: BP 117/76; PULSE 98; RESP 20; TEMP 98.3
== END 2018-07-06 18:45 | disposition home or self-care (01) ==
LOC: H.ER 16:53
DX: J40 Bronchitis, not specified as acute or chronic (principal); I10 Essential (primary) hypertension; Z79.899 Other long term (current) drug therapy

== ENCOUNTER 2018-07-18 15:29 | Emergency (ER) | payer MEDICARE ==
[2018-07-18 15:30] VITALS: BMI 20.5
[2018-07-18 15:36] VITALS: BP 136/98; PULSE 98; TEMP 97.8; O2SAT 98
--- NOTE | 2018-07-18 16:27 | ED PDOC ---
HPI: Psych/Substance Abuse Time Seen by Provider: 07/18/18 15:41 Chief Complaint (Nursing): Shortness Of Breath Chief Complaint (Provider): Anxiety History Per: Patient History/Exam Limitations: no limitations Onset/Duration Of Symptoms: Days Current Symptoms Are (Timing): Still Present Suicide/Self Injury Attempted (Context): None Modifying Factor(s): None Associated Symptoms: Anxiety Additional Complaint(s): 52 y/o male with a PMHx of Schizophrenia presents to the ED for evaluation of anxiety attacks associated with shortness of breath. EMS report patient was at home when he called EMS complaining of feeling shortness of breath and stated he felt like he couldn't breath. Of note, patient reports of being hospitalized at [facility] for psychiatric evaluation where he was given a prescription of Haldol. Patient noted to have chronic tremors. When asked about tremors, patient states tremors are mostly left sided, occasionally radiating to the right. Patient additionally states he lives alone and is disability after being in a coma and having a slight stroke. Otherwise, patient denies any pain, coughing and history of Parkinson's Disease. PMD: non [facility] Provider Past Medical History Reviewed: Historical Data, Nursing Documentation, Vital Signs Vital Signs: Last Vital Signs Temp 97.8 F 07/18/18 15:33 Pulse 98 H 07/18/18 15:33 Resp 18 07/18/18 15:33 BP 136/98 H 07/18/18 15:33 Pulse Ox 98 07/18/18 15:33 - Medical History PMH: CVA, HTN (However, not on any medications), Migraine, Schizophrenia Denies: Asthma, Diabetes - Surgical History Surgical History: No Surg Hx - Family History Family History: States: Unknown Family Hx - Living Arrangements Living Arrangements: Alone - Immunization History Hx Tetanus Toxoid Vaccination: No Hx Influenza Vaccination: No Hx Pneumococcal Vaccination: Yes - Home Medications Home Medications: Ambulatory Orders Medication Instructions Recorded Ibuprofen [Motrin] 600 mg PO TID 7 Days tab 04/08/18 B,C/Folic/Zinc/Copper Ox/Vit E 1 each PO DAILY 05/03/18 [Stress B-Complex Tablet] Clindamycin [Cleocin] 300 mg PO QID 05/03/18 amLODIPine [Norvasc] 2.5 mg PO DAILY 05/03/18 Azithromycin [Zithromax] 250 mg PO DAILY #6 tab 07/06/18 RX: Albuterol HFA [Ventolin HFA 90 2 puff IH Q4H #1 puff 07/06/18 mcg/actuation (8 g)] - Allergies Allergies/Adverse Reactions: Allergies Allergy/AdvReac Type Severity Reaction Status Date / Time No Known Allergies Allergy Verified 07/03/18 17:02 Review of Systems ROS Statement: Except As Marked, All Systems Reviewed And Found Negative Respiratory: Positive for: Shortness of Breath Psych: Positive for: Anxiety Physical Exam - Reviewed Nursing Documentation Reviewed: Yes Vital Signs Reviewed: Yes - Physical Exam Appears: Positive for: No Acute Distress Head Exam: Positive for: ATRAUMATIC, NORMOCEPHALIC Skin: Positive for: Normal Color, Warm, Dry Eye Exam: Positive for: Normal appearance, EOMI, PERRL Neck: Positive for: Normal, Painless ROM Cardiovascular/Chest: Positive for: Regular Rate, Rhythm. Negative for: Murmur Respiratory: Positive for: Normal Breath Sounds. Negative for: Respiratory Distress Extremity: Positive for: Normal ROM. Negative for: Deformity Neurologic/Psych: Positive for: Alert, employee health rn II-XII, Oriented (x3), Other (Tremors noted on exam). Negative for: Motor/Sensory Deficits - ECG O2 Sat by Pulse Oximetry: 98 (RA) Pulse Ox Interpretation: Normal Medical Decision Making Medical Decision Making: Time: 1608 Plan: -- Ativan 2 mg PO Scribe Attestation: Documented by Patrica Roy, acting as a scribe for Jesse Dang PA-C. Provider Scribe Attestation: All medical record entries made by the Scribe were at my direction and personally dictated by me. I have reviewed the chart and agree that the record accurately reflects my personal performance of the history, physical exam, medical decision making, and the department course for this patient. I have also personally directed, reviewed, and agree with the discharge instructions and disposition. Disposition - Clinical Impression Clinical Impression: Anxiety - Patient ED Disposition Is Patient to be Admitted: No Comment: see below Doctor Will See Patient In The: Office Counseled Patient/Family Regarding: Studies Performed, Diagnosis, Need For Followup - Disposition Disposition: Routine/Home Disposition Time: 17:35 Condition: STABLE Additional Instructions: CONTINUE TO F/U WITH YOUR PSYCHIATRIST DR. LOPES AT [facility] CONTINUE TO ATTEND YOUR IDT PROGRAM AT [facility] EVERYDAY. YOU ARE SCHEDULED TO BE AT YOUR IDT PROGRAM ON 07/21/18. CONTINUE TO TAKE YOUR MEDICATION PRESCRIBED Forms: [employer] (Djiboutian)
[2018-07-18 16:35] VITALS: RESP 16
== END 2018-07-18 17:26 | disposition home or self-care (01) ==
LOC: H.ER 15:29
DX: F41.9 Anxiety disorder, unspecified (principal)